=== PATIENT | male | born 2005 | race Caucasian/White ===

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

== ENCOUNTER 2023-07-17 09:54 | Emergency (ER) | payer OTHER ==
[~2023-07-17] VITALS: Ht 170.2 cm; Wt 90.9 kg
[~2023-07-17 09:54] MED LIST changes: +DIPH25CA85 PO; -TERB250 PO; +TERB250T90 PO
[2023-07-17 10:12] VITALS: TEMP 97.5
[2023-07-17] MEDS ORDERED: CEPHALEXIN MONOHYDRATE 500 MG CAPSULE PO ONE (13:00)
[2023-07-17] MEDS ORDERED: SULFAMETHOX/TRIMETH DS 800-160 MG/TABLET PO ONE (13:00)
[2023-07-17] MEDS ORDERED: SULF-261 PO (14:15)
[2023-07-17] MEDS ORDERED: CEPH-558 PO (14:16)
[2023-07-17 14:45] VITALS: BP 128/86; PULSE 87; RESP 16
== END 2023-07-17 15:05 | disposition home or self-care (01) ==
LOC: EMS 09:54
DX: L05.01 Pilonidal cyst with abscess (principal); F12.90 Cannabis use, unspecified, uncomplicated; Z91.010 Allergy to peanuts
CPT/HCPCS: 99283